=== PATIENT | female | born 1955 | race Caucasian/White ===

== ENCOUNTER 2017-07-22 04:42 | Inpatient (IN) | payer BC ==
[~2017-07-22] VITALS: Ht 165.1 cm; Wt 57.7 kg
[~2017-07-22 04:42] MED LIST: FOLIC ACID; VIT B12
[2017-07-22 04:53] VITALS: Ht 165.1 cm; Wt 57.7 kg
[2017-07-22 06:02] LABS: CALCIUM 8.6 mg/dL (8.5-10.1); CARBON DIOXIDE 16.8 mmol/L (21-32); CHLORIDE SERUM 104 mmol/L (98-107); GFR1 59 mL/min; GLUCOSE SERUM 276 mg/dL (74-106); POTASSIUM SERUM 3.3 mmol/L (3.5-5.1); SODIUM SERUM 138 mmol/L (136-145)
[2017-07-22 06:06] LABS: ALBUMIN 3.6 g/dL (3.4-5.0); ALKALINE PHOSPHATASE 84 U/L (46-116); ALT/SGPT 15 U/L (14-59); AST/SGOT 26 U/L (15-37); BILIRUBIN TOTAL 0.55 mg/dL (0.20-1.00); LIPASE 85 IU/L (73-393); TOTAL PROTEIN, SERUM 6.5 g/dL (6.4-8.2)
[2017-07-22 06:08] LABS: BASOPHIL % 0.4 % (0-2); PLATELET COUNT 323 x10^3mcL (130-400); RED CELL DISTRIBUTION WIDTH 13.3 % (11.5-14.5)
[2017-07-22 07:04] LABS: FREE T4 1.03 ng/dL (0.76-1.46)
[2017-07-22 08:23] LABS: UA SPECIFIC GRAVITY >=1.030 (1.005-1.035); microscopic required? YES; urine erythrocyte TRACE (NEGATIVE)
[2017-07-22 08:37] LABS: CHOLESTEROL/HDL RATIO 2.8; PHOSPHOROUS 2.2 mg/dL (2.5-4.9)
[2017-07-22 08:43] LABS: AMPHETAMINE QUAL UR NONE DETECTED (NEG <=1000)
[2017-07-22] MEDS ORDERED: ZOFRAN ODT4 MG SL (11:18)
[2017-07-22] MEDS ORDERED: ZANTAC 150150 MG PO (11:19)
[2017-07-22] MEDS ORDERED: ZESTRIL5 MG PO (11:19)
[2017-07-22] MEDS ORDERED: PRILOSEC OTC20 M1 PO (11:19)
[2017-07-22] MEDS ORDERED: DIFLUCAN100 MG PO (11:21)
[2017-07-22] MEDS ORDERED: BACDS PO (11:22)
[2017-07-22 11:23] LABS: CALCIUM 8.1 mg/dL (8.5-10.1); CARBON DIOXIDE 21.8 mmol/L (21-32); CHLORIDE SERUM 107 mmol/L (98-107); CREATININE SERUM 0.8 mg/dL (0.6-1.0); GFR1 > 60 mL/min; GLUCOSE SERUM 163 mg/dL (74-106); POTASSIUM SERUM 3.8 mmol/L (3.5-5.1); SODIUM SERUM 142 mmol/L (136-145)
[2017-07-22 12:57] VITALS: BP 109/49
[2017-07-22 17:43] VITALS: BP 120/62
[2017-07-22 20:46] VITALS: BP 130/70
[2017-07-23 05:26] VITALS: BP 109/55
[2017-07-23 06:22] LABS: CALCIUM 7.5 mg/dL (8.5-10.1); CARBON DIOXIDE 21.1 mmol/L (21-32); CHLORIDE SERUM 114 mmol/L (98-107); CREATININE SERUM 0.5 mg/dL (0.6-1.0); GFR1 > 60 mL/min; GLUCOSE SERUM 100 mg/dL (74-106); SODIUM SERUM 144 mmol/L (136-145)
[2017-07-23 06:23] LABS: BASOPHIL % 0.7 % (0-2); PLATELET COUNT 253 x10^3mcL (130-400); RED CELL DISTRIBUTION WIDTH 13.5 % (11.5-14.5)
[2017-07-23 08:58] VITALS: BP 120/56
[2017-07-23 13:06] VITALS: BP 112/59
[2017-07-23 13:20] VITALS: BP 126/60
[2017-07-23 16:56] VITALS: BP 130/63
[2017-07-23 21:14] VITALS: BP 123/63
[2017-07-24 05:27] VITALS: BP 126/60
[2017-07-24 06:07] LABS: BASOPHIL % 0.2 % (0-2); RED CELL DISTRIBUTION WIDTH 13.9 % (11.5-14.5)
[2017-07-24 06:30] LABS: PLATELET COUNT 98 x10^3mcL (130-400)
[2017-07-24 06:35] LABS: CALCIUM 8.5 mg/dL (8.5-10.1); CARBON DIOXIDE 22.9 mmol/L (21-32); CHLORIDE SERUM 113 mmol/L (98-107); CREATININE SERUM 0.4 mg/dL (0.6-1.0); GFR1 > 60 mL/min; GLUCOSE SERUM 96 mg/dL (74-106); SODIUM SERUM 148 mmol/L (136-145)
[2017-07-24 11:49] VITALS: BP 124/57
[2017-07-24] MEDS ORDERED: PRILOSEC OTC20 M1 PO (12:39)
[2017-07-24] MEDS ORDERED: CARAFATE1 GM PO (12:39)
[2017-07-24] MEDS ORDERED: BUS10 PO (12:40)
[2017-07-24] MEDS ORDERED: CAC650 PO (12:42)
[2017-07-24] MEDS ORDERED: COL100 PO (12:43)
[2017-07-24] MEDS ORDERED: BACDS PO (12:47)
[2017-07-24 13:50] VITALS: BP 124/57
== END 2017-07-24 15:00 | disposition home or self-care (01) | DRG 392 ==
LOC: ED 04:42 → DU 06:42 → IC 08:58 → DU 11:07 → MU 07-24 10:09
PROVIDERS: Emergency Medicine; Family Medicine; Internal Medicine Gastroenterology
PROC: 0DB78ZX Excision of Stomach, Pylorus, Via Natural or Artificial Opening Endoscopic, Diagnostic (ICD-10-PCS; principal; 2017-07-23 11:00)
PROC: 0DJD8ZZ Inspection of Lower Intestinal Tract, Via Natural or Artificial Opening Endoscopic (ICD-10-PCS; 2017-07-24)
DX: A08.4 Viral intestinal infection, unspecified (principal); N39.0 Urinary tract infection, site not specified; E87.2 Acidosis; E87.6 Hypokalemia; G90.8 Other disorders of autonomic nervous system; Z88.8 Allergy status to other drugs, medicaments and biological substances; I10 Essential (primary) hypertension; R73.9 Hyperglycemia, unspecified; F12.20 Cannabis dependence, uncomplicated; M54.30 Sciatica, unspecified side; R31.9 Hematuria, unspecified; E86.0 Dehydration; F41.1 Generalized anxiety disorder; E83.39 Other disorders of phosphorus metabolism; H05.20 Unspecified exophthalmos; K57.90 Diverticulosis of intestine, part unspecified, without perforation or abscess without bleeding
CPT/HCPCS: 36600; 43235; 45378; 82962; 83880; 84439; 97110-GP; 97116-GP; 97530-GP; G0480; J0696; J1200; J1610; J1815; J2060; J2250; J2270; J2310; J2405; J2543; J2550; J3010; J3480; J3490; J7030; J7042; J8597; Q0092